=== PATIENT | male | born 2000 | race Caucasian/White ===

== ENCOUNTER 2023-03-18 02:20 | Emergency (ER) | payer MEDICAID, OTHER ==
[~2023-03-18] VITALS: Ht 167.6 cm; Wt 80.6 kg
[2023-03-18] MEDS ORDERED: ACETAMINOPHEN 325 MG TABLET PO ONE (04:30)
[2023-03-18 05:04] VITALS: BP 127/79
== END 2023-03-18 06:27 | disposition home or self-care (01) ==
LOC: EMS 02:23
DX: S09.90XA Unspecified injury of head, initial encounter (principal); X58.XXXA Exposure to other specified factors, initial encounter; Y93.89 Activity, other specified; Y92.89 Other specified places as the place of occurrence of the external cause; Y99.8 Other external cause status
CPT/HCPCS: 70450; 72125; 99284